=== PATIENT | female | born 1975 | race Caucasian/White ===

== ENCOUNTER 2017-03-05 17:12 | Emergency (ER) | payer OTHER ==
[~2017-03-05] VITALS: Ht 152.4 cm; Wt 81.2 kg
[2017-03-05 19:03] LABS: UA SPECIFIC GRAVITY <=1.005 (1.005-1.035); microscopic required? YES; urine erythrocyte 1+ (NEGATIVE)
[2017-03-05 20:13] VITALS: BP 111/62
== END 2017-03-05 20:13 | disposition home or self-care (01) ==
LOC: ED 17:12
PROVIDERS: Emergency Medicine
DX: N39.0 Urinary tract infection, site not specified (principal)
CPT/HCPCS: J0780; J1100; J1885; J7030

== ENCOUNTER 2017-07-22 17:52 | Emergency (ER) | payer OTHER ==
[~2017-07-22] VITALS: Ht 154.9 cm; Wt 75.7 kg
[2017-07-22 18:02] VITALS: BP 128/90; Ht 154.9 cm; Wt 75.7 kg
== END 2017-07-22 19:02 | disposition home or self-care (01) ==
LOC: ED 17:52
DX: L60.0 Ingrowing nail (principal)
CPT/HCPCS: J2001

== ENCOUNTER 2018-05-25 12:36 | Emergency (ER) | payer OTHER ==
[~2018-05-25] VITALS: Ht 154.9 cm; Wt 70.8 kg
[2018-05-25 12:43] VITALS: BP 118/81; Ht 154.9 cm; Wt 70.8 kg
== END 2018-05-25 15:01 | disposition home or self-care (01) ==
LOC: ED 12:36
DX: L60.0 Ingrowing nail (principal)
CPT/HCPCS: J2001